=== PATIENT | male | born 1980 | race Caucasian/White ===

== ENCOUNTER 2019-03-03 15:26 | Emergency (ER) | payer MEDICARE, MEDICAID ==
[~2019-03-03] VITALS: Ht 167.6 cm; Wt 90.3 kg
[2019-03-03 15:59] VITALS: BP 130/83
--- NOTE | 2019-03-03 15:59 | ED GU-Male ---
General Chief Complaint: Male Reproductive Stated Complaint: MALE REPRODUCTIVE SWELLING Source: patient Exam Limitations: no limitations History of Present Illness Date Seen by Provider: Mar 03, 2019 Time Seen by Provider: 15:30 Initial Comments Patient reports penile swelling after vigorous manual massage. Patient states he is unable to sustain an erection despite vigorous masturbation. Reports been concerned upon visual inspection that shaft is swollen. Penis is noninteractive. No testicular pain or swelling. No other symptoms or complaints Timing/Duration: just prior to arrival Severity/Quality: mild Location: other (shaft) Radiation: none Activities at Onset: none Prior Genitourinary Problems: none Sexual [place] History: not active Modifying Factors: Improves With Analgesics Allergies and Home Medications Allergies Coded Allergies: divalproex sodium (Verified Allergy, Unknown, throat swelling, 03/03/19) haloperidol (Verified Allergy, Unknown, throat swelling, 03/03/19) risperidone (Verified Allergy, Unknown, throat swelling, 03/03/19) Patient Home Medication List Home Medication List Reviewed: Yes Review of Systems Review of Systems Constitutional: see HPI EENTM: see HPI Respiratory: see HPI Cardiovascular: see HPI Gastrointestinal: see HPI Genitourinary: see HPI Musculoskeletal: see HPI Past Memnrrf-Xwkpnz-Lqxmuf Hx Patient Social History Alcohol Use: Denies Use Recreational Drug Use: No Drug of Choice: former prescription drug user Smoking Status: Current Everyday Smoker Type Used: Cigarettes 2nd Hand Smoke Exposure: Yes Recent Foreign Travel: No Contact w/Someone Who Travel: No Recent Hopitalizations: No Physical Abuse: No Sexual Abuse: No Mistreated: No Fear: No Seasonal Allergies Seasonal Allergies: No Past Medical History Surgeries: Yes (brain surgery to remove tumor; L testicle removal; ) Respiratory: No Cardiac: No Neurological: Yes (brain cancer) Seizure Disorder, Stroke Genitourinary: Yes (Left testicle removal; bilateral testicular torsion) Musculoskeletal: No Endocrine: No HEENT: No Cancer: Yes Brain Psychosocial: Yes Anxiety Integumentary: No Physical Exam Vital Signs Capillary Refill : Height, Weight, BMI Height: '" Weight: lbs. oz. kg; BMI Method: General Appearance: WD/WN Genital/Rectal: other (minimal swelling of shaft of penis, no erythema, no blood at the meatus or swelling of glands, one testicle and scrotum) Progress/Results/Core Measures Suspected Sepsis SIRS Temperature: Pulse: Respiratory Rate: Blood Pressure / Mean: Results/Orders Vital Signs/I&O Capillary Refill : Less Than 3 Seconds Departure Communication (Admissions) Ibuprofen and rest recommended. Impression Primary Impression: Swelling of penis Disposition: 01 HOME, SELF-CARE Condition: Improved Departure-Patient Inst. Patient Instructions: Katja (ABY) Add. Discharge Instructions: Take ibuprofen as needed for penile pain and swelling. All discharge instructions reviewed with patient and/or family. Voiced understanding. EDWARDO MANDEL DO Mar 03, 2019 15:59
== END 2019-03-03 15:59 | disposition home or self-care (01) ==
LOC: EDUNIT# 15:26 → ER FS 15:30
DX: N48.89 Other specified disorders of penis (principal); F41.9 Anxiety disorder, unspecified; G40.909 Epilepsy, unspecified, not intractable, without status epilepticus; Z86.73 Personal history of transient ischemic attack (TIA), and cerebral infarction without residual deficits; Z90.79 Acquired absence of other genital organ(s); Z85.841 Personal history of malignant neoplasm of brain; Z88.8 Allergy status to other drugs, medicaments and biological substances
CPT/HCPCS: 99283

== ENCOUNTER 2019-09-04 09:41 | Outpatient (RCR) | payer MEDICARE, MEDICAID | END 2019-11-24 | disposition home or self-care (01) | LOC: ONC 09:41 | PROVIDERS: ATTEND Radiology Radiation Oncology | DX: Z51.0 Encounter for antineoplastic radiation therapy (principal) | CPT/HCPCS: 77300; 77301; 77334; 77338; 77386; 99204 ==

== ENCOUNTER 2020-02-24 14:34 | Outpatient (RCR) | payer MEDICARE, MEDICAID | END 2020-05-24 | disposition home or self-care (01) | LOC: ONC 14:34 | PROVIDERS: ATTEND Radiology Radiation Oncology | DX: Z51.0 Encounter for antineoplastic radiation therapy (principal) | CPT/HCPCS: 99213 ==

== ENCOUNTER 2020-09-20 09:45 | Outpatient (RCR) | payer MEDICARE, MEDICAID | END 2020-12-06 | disposition home or self-care (01) | LOC: ONC 09:45 | PROVIDERS: ATTEND Radiology Radiation Oncology | DX: Z51.0 Encounter for antineoplastic radiation therapy (principal); C71.8 Malignant neoplasm of overlapping sites of brain | CPT/HCPCS: 77290; 77300; 77301; 77334; 77338; 77386; 99214 ==

== ENCOUNTER 2021-06-10 15:52 | Emergency (ER) | payer MEDICARE, MEDICAID ==
[~2021-06-10] VITALS: Ht 167.7 cm; Wt 68.0 kg
[2021-06-10 16:07] VITALS: BP 131/92
--- NOTE | 2021-06-10 16:22 | ED Headache ---
General Chief Complaint: Head/Cervical Problems Stated Complaint: HEADACHES/PANIC ATTACKS Source: patient Exam Limitations: no limitations History of Present Illness Date Seen by Provider: Jun 10, 2021 Time Seen by Provider: 16:20 Initial Comments 41-year-old male with past medical history significant for metastatic brain cancer. Patient does have a diagnosis for over 5 years, followed at neurology has recently been going through radiation therapy for the last 30 days. Has a follow-up ointment in 2 weeks at and will be seeing a new neurologist. His PCP is Dr. GRISSOM who has been managing his chronic condition as well. Patient has concerns today over medications that he is taking recently that he hadn't taken for several months (buprenorphine). Patient says that it tends to help with his nerves, but got nervous after he t ook it was a very minor done something wrong. Patient does have slight headache, but no worse than usual. He also took 800 of ibuprofen this morning. Mostly just worried that he might of done something wrong. Allergies and Home Medications Allergies Coded Allergies: divalproex sodium (Verified Allergy, Unknown, throat swelling, 03/03/19) haloperidol (Verified Allergy, Unknown, throat swelling, 03/03/19) risperidone (Verified Allergy, Unknown, throat swelling, 03/03/19) Patient Home Medication List Home Medication List Reviewed: Yes Review of Systems Review of Systems Constitutional: No fever, No malaise, No weakness Eyes: No Symptoms Reported Ears, Nose, Mouth, Throat: no symptoms reported Respiratory: no symptoms reported Cardiovascular: no symptoms reported Musculoskeletal: No back pain, No joint pain Psychiatric/Neurological: See HPI, Anxiety, Headache Past Htevtqh-Cpvdrp-Xqlayt Hx Patient Social History Tobacco Use?: Yes Tobacco type used: Cigarettes Smoking Status: Current Everyday Smoker Substance use?: No Alcohol Use?: No Pt feels they are or have been: No Seasonal Allergies Seasonal Allergies: No Past Medical History Surgeries: Yes (brain surgery to remove tumor; L testicle removal; ) Respiratory: No Cardiac: No Neurological: Yes (brain cancer) Seizure Disorder, Stroke Genitourinary: Yes (Left testicle removal; bilateral testicular torsion) Musculoskeletal: No Endocrine: No HEENT: No Cancer: Yes Brain Psychosocial: Yes Anxiety Integumentary: No Physical Exam Vital Signs Vital Signs - First Documented 06/10/21 16:07 Temp 37.5 Pulse 88 Resp 18 B/P (MAP) 131/92 (105) Pulse Ox 98 O2 Delivery Room Air Capillary Refill : Height, Weight, BMI Height: 5'6.00" Weight: 199lbs. oz. [id number]; BMI Method:Stated General Appearance: WD/WN, no apparent distress HEENT: PERRL/EOMI, normal ENT inspection Neck: non-tender, supple Psychiatric: alert, oriented x 3; No depressed affect, No lethargic [place] Nerves: normal hearing, normal speech, PERRL Coordination/Gait: normal finger to nose, normal gait Motor/Sensory: no motor deficit, no sensory deficit Skin: normal color, warm/dry Progress/Results/Core Measures Results/Orders Vital Signs/I&O 06/10/21 16:07 Temp 37.5 Pulse 88 Resp 18 B/P (MAP) 131/92 (105) Pulse Ox 98 O2 Delivery Room Air Progress Progress Note : Progress Note Patient simply needed reassurance, worried that he had done something wrong by taking his Rx buprenorphine (which he had not taken since January 2021). No ill side-effects, just got worried. Departure Impression Primary Impression: Headache Qualified Codes: R51.9 - Headache, unspecified Additional Impression: Brain malignancy Qualified Codes: C71.9 - Malignant neoplasm of brain, unspecified Disposition: 01 HOME, SELF-CARE Condition: Stable Departure-Patient Inst. Decision time for Depature: 16:21 Referrals: GERARDO GRISSOM DO (PCP/Family) Primary Care Physician Patient Instructions: Headache, Adult (DC) Add. Discharge Instructions: Call Dr Grissom's office on Saturday to clarify your prescription medications that he has prescribed for you. Keep your upcoming appointment this month @ [facility]. Return to the ER for any worsening or uncontrolled symptoms All discharge instructions reviewed with patient and/or family. Voiced understanding. VIKTORIYA RAMOS DO Jun 10, 2021 16:22
--- OUTSIDE RECORDS SUMMARY | 2021-06-12 09:49 | XMS REPORT | Encounter Summary ---
Author Author [facility] Organization [facility] Address Unknown Phone Unavailable Care Team Providers Care Director Of [employer] Name Role Phone Rickie Zhou MD Unavailable Sinan Lott MD Unavailable Jose Zamudio MD Unavailable Unavailable Ron Mendoza DO PCP Marquise Colby RN 2 Unavailable Carli Kerns RN Unavailable Unavailable Edgar Rick MD Unavailable Encounter Details Care Team Description Date Type Department Wolf Garcia MD [address] [facility] [place] [address] 06/12/2021 Emergency Emergency Departmen t: [facility] [address] [facility] [address] [place] [address] Social History Date Tobacco Use Types Packs/Day Years Used Current Every Day Smoker Cigarettes 0.5 19 Smokeless Tobacco: Never Used Comments: 8-10 cigarettes per day; 2.5 p pd for 15 years Drinks/Week oz/Week Comments Alcohol Use 0 Standard drinks or equivalent 0.0 No Sex Assigned at Date Recorded Male 02/16/2020 11:06 AM CDT Date Recorded COVID-19 Exposure Response 06/12/2021 9:15 AM CDT In the last month, have you been in contact with No / Unsure someone who was confirmed or suspected to have Coronavirus / COVID-19? documented as of this encounter Last Filed Vital Signs Reading Time Taken Comments Vital Sign 141/97 06/12/2021 9:17 AM CDT Blood Pressure 64 06/12/2021 9:17 AM CDT Pulse 36.9 C (98.4 F) 06/12/2021 9:17 AM CDT Temperature - - Respiratory Rate 98% 06/12/2021 9:17 AM CDT Oxygen Saturation - - Inhaled Oxygen Concentration 63.5 kg (140 lb) 06/12/2021 9:17 AM CDT Weight 165.1 cm (5' 5") 06/12/2021 9:17 AM CDT Height 23.3 06/12/2021 9:17 AM CDT Body Mass Index documented in this encounter Functional Status Date of Assessment Functional Status Response 02/01/2021 Does the patient have a hearing impairment: No 02/01/2021 Does the patient have a visual impairment: No 02/01/2021 Does the patient have impaired ambulation: Yes 02/01/2021 Does the patient have an activity of daily living No (ADL) impairment: 02/01/2021 Does the patient have an instrumental activity of No daily living (IADL) impairment: Date of Assessment Cognitive Status Response 02/01/2021 Does the patient have a cognitive impairment: No documented as of this encounter ED Notes * Mark Reeder RN - 06/12/2021 9:43 AM CDT Pt reports increase in symptoms associated with hx of brain cancer x 5 years. Pt family reports that slight symptom increase started around the time pt stopped taking steroids and worsened in the last 3 days. Pt reports pain in head and robyn tigo, nausea, syncope and confusion with standing/ambulation. Patient and family report increased lethargy and confusion at rest. documented in this encounter Plan of Treatment Order Schedule Name Type Priority Associated Diag noses ONE TIME for 1 Occurrences starting 07/2021 until 06/12/2021 CBC AND DIFF Lab STAT ONE TIME for 1 Occurrences starting 07/2021 until 06/12/2021 COMPREHENSIVE METABOLIC Lab STAT PANEL ONE TIME for 1 Occurrences starting 07/2021 until 06/12/2021 MAGNESIUM Lab STAT ONE TIME for 1 Occurrences starting 07/2021 until 06/12/2021 CT HEAD WO CONTRAST Imaging STAT ONE TIME for 1 Occurrences starting 07/2021 until 06/12/2021 PROTIME INR (PT) Lab STAT ONE TIME for 1 Occurrences starting 07/2021 until 06/12/2021 PTT (APTT) Lab STAT documented as of this encounter Visit Diagnoses Not on filedocumented in this encounter Administered Medications Action Date Dose Rate Site Medication Order MAR Action HYDROmorphone injection (DILAUDID) 1 mg 1 mg, Intravenous, ONCE, 1 dose, 06/12/21 at 1030 documented in this encounter Orders First Ordered Date Medications Ordered That Might Not Have Count Last Ordered Date Been Administered HYDROmorphone injection (DILAUDID) 1 mg 1 06/12/2021 documented in this encounter Additional Health Concerns Assessment Noted Time A fall risk assessment has been completed for the pat ient 05/10/2021 1:53 PM CDT A Body Mass Index follow-up plan has been documented for the patient 11/23/2020 1:56 PM DEADENER PHQ-2 Depression Total Score: 0 11/23/2020 1:17 PM DEADENER documented as of this encounter
--- OUTSIDE RECORDS SUMMARY | 2021-06-12 09:49 | XMS REPORT | Encounter Summary ---
Author Author [facility] Organization [facility] Address Unknown Phone Unavailable Care Team Providers Care Marine Driller Name Role Phone Rickie Zhou MD Unavailable Sinan Lott MD Unavailable Jose Zamudio MD Unavailable Unavailable Ron Mendoza DO PCP Marquise Colby RN 2 Unavailable Carli Kerns RN Unavailable Unavailable Edgar Rick MD Unavailable Encounter Details Care Team Description Date Type Department 05/10/2021 Travel Social History Date Tobacco Use Types Packs/Day Years Used Current Every Day Smoker Cigarettes 0.5 19 Smokeless Tobacco: Never Used Comments: 8-10 cigarettes per day; 2.5 p pd for 15 years Drinks/Week oz/Week Comments Alcohol Use 0 Standard drinks or equivalent 0.0 No Sex Assigned at Date Recorded Male 02/16/2020 11:06 AM CDT Date Recorded COVID-19 Exposure Response 05/10/2021 11:48 AM CDT In the last month, have you been in contact with No / Unsure someone who was confirmed or suspected to have Coronavirus / COVID-19? documented as of this encounter Functional Status Date of Assessment [...] impairment: No documented as of this encounter Plan of Treatment Not on filedocumented as of this encounter Visit Diagnoses Not on filedocumented in this encounter Additional Health Concerns Assessment Noted Time A fall risk assessment has been completed for the pat ient 05/10/2021 1:53 PM CDT A Body Mass Index follow-up plan has been documented for the patient 11/23/2020 1:56 PM PSYCH COORDINATOR PHQ-2 Depression Total Score: 0 11/23/2020 1:17 PM PSYCH COORDINATOR documented as of this encounter
--- OUTSIDE RECORDS SUMMARY | 2021-06-12 09:49 | XMS REPORT | Clinical Summary ---
Author Author [facility] Organization [facility] Address Unknown Phone Unavailable Care Team Providers [employer] Teacher Name Role Phone Rickie Zhou MD Unavailable Sinan Lott MD Unavailable Jose Zamudio MD Unavailable Unavailable Ron Mendoza DO PCP Marquise Colby RN 2 Unavailable Carli Kerns RN Unavailable Unavailable Edgar Rick MD Unavailable Source Comments Some departments are not documenting in the electronic medical record. If you d o not see the information that you expected, contact Release of Information in [facility] Information Management department at [phone] for further assistan ce in locating additional records.[facility] Allergies Comments Active Allergy Reactions Severity Noted Date tremors or tongue swelling - patient is unsure of exact reaction Divalproex SEE COMMENTS Medium 09/26/2007 tremors or tongue swelling - patient is unsure of exact reaction Haloperidol Lactate SEE COMMENTS Medium 09/26/2007 tremors or tongue swelling - patient is unsure of exact reaction Risperidone SEE COMMENTS Medium 09/26/2007 Medications End Date Status Medication Sig Dispensed Refills Start Date Active buprenorphine (SUBUTEX) 8 Place 24 mg 0 05/04 mg tablet under tongue 0 three times daily. Added per 05/20/20 records from [facility] Active WHEEL CHAIR medical Use as 1 each 0 device needed. 0 Active Miscellaneous Medical [C71.9] 1 each 0 Supply mis 99 months 0 [id number] Active ALPRAZolam (XANAX) 1 mg Take 1 mg by 0 tablet mouth daily. 1 Active brivaracetam (BRIVIACT) Take one 30 tablet 5 50 mg tablet tablet by 1 mouth every morning. Active brivaracetam (BRIVIACT) Take one 30 tablet 5 100 mg tab tablet by 1 mouth at bedtime daily. 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 Grey Donahue Jr. is 38 y.o. male with a history of Peyronie s disease which started 2.5 years ago. First symptoms included: curvature with a sudden onset. Patient does not recall any trauma to the penis. Patient s prior treatment = none. Patient is c urrently on no medications for this condition. He was diagnosed with an gely godendroma approximately 2.5 years ago for which he underwent a craniotomy . Subsequent to this, he was placed on steroids and noticed a temporary imp rovement in the curvature, although this did not last once the steroids wer e completed. Currently has poor erectile function. L ast Assessment & Plan: Formatting of this note might be differ ent from the original. Mr. Donahue is a 38-year-old male with history all are good in neuroma status post craniotomy who presents for evaluation of penile curvature. He has significant leftward penile curvatu re with poor erections. Given his poor erectile dysfunction, we will plan to trial him on a PDE 5 inhibitor before pursuing therapy such as Xiaflex . We reviewed the etiology of parities disease and discussed the diff erence between active and chronic phase disease. We also discussed the t reatments for parities disease including oral medication such as pento xifylline and levocarnitine in the active phase as well as Xiaflex and charla gical options in the chronic phase. At this time, he is agreeable to pursui ng PDE 5 inhibitor therapy and we will plan to see him in the near future . We also discussed the concern that he h as developed erectile dysfunction at such a young age even in the setting of Peyronie's. He has a significant family history of cardiovas cular disease and is a smoker. We counseled him to quit smoking and encou raged him to follow-up with his primary care physician for cardiovascul ar evaluation. 1. Viagra prn 2. Return to clinic in 3 months 3. Smoking cessation counseling Opioid dependence on agonist therapy 06/12/2012 Post traumatic stress disorder (PTSD) 06/12/2012 Resolved Problems Problem Noted Date Resolved Date Encounter for long-term (current) use of medications 10/1403/24/2020 Brain tumor, glioma 02/29/2016 06/21/2016 Brain tumor 01/30/2016 06/21/2016 Encounters Care Team Description Date Type Specialty Wolf Garcia MD 06/12/2021 Emergency Emergency Medicine 06/12/2021 Travel Ghazal Oleary MD Anaplastic oligoastrocytoma (HCC) (Prima ry Dx) 05/10/2021 Office Visit Radiation Therapy Ghazal Oleary MD 05/10/2021 Hospital Radiology Encounter 05/10/2021 Travel Kenny Gutierrez MD 04/27/2021 Documentation Radiation Therapy Interface, Aria Treatment Data 04/10/2021 Orders Only Radiation Therapy Ghazal Oleary MD Anaplastic oligoastrocytoma (HCC) (Prima ry Dx) 04/07/2021 Office Visit Radiation Therapy Interface, Aria Treatment Data 04/07/2021 Orders Only Radiation Therapy 04/07/2021 Travel Interface, Aria Treatment Data 04/05/2021 Orders Only Radiation Therapy Rima Qiunones LMSW 04/04/2021 Documentation Radiation Therapy Interface, Aria Treatment Data 04/04/2021 Orders Only Radiation Therapy Ghazal Oleary MD Anaplastic oligoastrocytoma (HCC) (Prima ry Dx) 03/31/2021 Office Visit Radiation Therapy Interface, Aria Treatment Data 03/31/2021 Orders Only Radiation Therapy 03/31/2021 Travel Interface, Aria Treatment Data 03/30/2021 Orders Only Radiation Therapy Interface, Aria Treatment Data 03/29/2021 Orders Only Radiation Therapy Interface, Aria Treatment Data 03/28/2021 Orders Only Radiation Therapy Interface, Aria Treatment Data 03/27/2021 Orders Only Radiation Therapy Ghazal Oleary MD Malignant neoplasm of brain, unspecified (HCC) 03/24/2021 Hospital Lab Encounter Ghazal Oleary MD Anaplastic oligoastrocytoma (HCC) (Prima ry Dx) 03/24/2021 Office Visit Radiation Therapy Interface, Aria Treatment Data 03/24/2021 Orders Only Radiation Therapy 03/24/2021 Travel Interface, Aria Treatment Data 03/23/2021 Orders Only Radiation Therapy Ghazal Oleary MD Malignant neoplasm of brain, unspecified (HCC) 03/22/2021 Hospital Lab Encounter Ghazal Oleary MD 03/22/2021 Nurse Only Radiation Therapy 03/22/2021 Travel Leticia Harper RN 03/22/2021 Documentation Radiation Therapy Leticia Harper RN Anaplastic oligoastrocytoma (HCC) (Prima ry Dx) 03/22/2021 Orders Only Radiation Therapy Interface, Aria Treatment Data 03/20/2021 Orders Only Radiation Therapy Rima Quinones LMSW 03/15/2021 Documentation Radiation Therapy from Last 3 Months Immunizations Name Administration Dates Next Due Flu vaccine, inj 07/28/2019, 09/01/2018, 11/2016, 07/29/2015, unspecified (Historical) 08/04/2012 Td vaccine, unspecified 06/04/2007 (Historical) Surgical History Surgery Date Site/Laterality Comments CYST REMOVAL 11/04/2013 - Right upper arm 11/03/2014 CRANIOTOMY 02/29/2016 Head/Right CRANIOTOMY, RES ECTION TUMOR performed by Sinan Lott MD at [facility] OR/Periop Medical devices from this surgery are i n the Implants section. APPENDECTOMY 11/04/1994 - 11/03/1995 CHOLECYSTECTOMY 11/04/2003 - 11/03/2004 ORCHIECTOMY 11/04/2002 - Left for inflammatio n/pain 11/03/2003 CRANIECTOMY 03/23/2020 Head/Right CRANIECTOMY/ DEMI NE FLAP CRANIOTOMY EXCISION SUPRATENTORIAL BRAIN TUMOR performed by Sinan Lott MD at [facility] OR Medical devices from this surgery are i n the Implants section. 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 Peyronie's disease Unspecified epilepsy without mention ~[id number] of intractable epilepsy (HCC) Neuropathy 02/06/2017 Anxiety and depression anxiety with panic attacks History of transient ischemic attack (TIA) Obsessive compulsive disorder 02/10/2018 Post traumatic stress disorder (PTSD) 06/12/2012 Anaplastic oligoastrocytoma (HCC) Family History Medical History Relation Name Comments Defect Daughter Heart Attack Father Heart problem Father Cancer Maternal Aunt liver with cirrhosi s Cancer Maternal Aunt lung Heart Attack Maternal Grandfather Cancer Maternal ovarian Grandmother Cancer-Ovarian Maternal Grandmother Thyroid Disease Mother Unknown to Patient Paternal Grandfather Unknown to Patient Paternal Grandmother Diabetes Sister Dementia Neg Hx Migraines Neg Hx Seizures Neg Hx Stroke Neg Hx Relation Name Status Comments Daughter Alive Father Maternal Aunt Maternal Aunt Maternal Grandfather Maternal Grandmother Mother Alive Paternal Grandfather Paternal Grandmother Sister Alive Social History Date Tobacco Use Types Packs/Day Years Used Current Every Day Smoker Cigarettes 0.5 19 Smokeless Tobacco: Never Used Tobacco Cessation: Ready to Quit: No; Co unseling Given: Yes Comments: 8-10 cigarettes per day; 2.5 ppd for 15 years Drinks/Week oz/Week Comments Alcohol Use 0 Standard drinks or equivalent 0.0 No Sex Assigned at Date Recorded Male 02/16/2020 11:06 AM CDT Date Recorded COVID-19 Exposure Response 06/12/2021 9:15 AM CDT In the last month, have you been in contact with No / Unsure someone who was confirmed or suspected to have Coronavirus / COVID-19? 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 Respiratory Rate 98% 06/12/2021 9:17 AM CDT Oxygen Saturation - - Inhaled Oxygen Concentration 63.5 kg (140 lb) 06/12/2021 9:17 AM CDT Weight 165.1 cm (5' 5") 06/12/2021 9:17 AM CDT Height 23.3 06/12/2021 9:17 AM CDT Body Mass Index Plan of Treatment Health Maintenance Due Date Last Done Comments MEDICARE ANNUAL WELLNESS 1982 VISIT DTAP/TDAP VACCINES (1 - 02/10/2000 06/04/2007 Tdap) PHYSICAL (COMPREHENSIVE) 02/10/2000 EXAM INFLUENZA VACCINE 08/04/2021 07/23/2020, 07/28/2019, 09/01/2018, Additional history exists HEPATITIS C SCREENING Completed 11/25/2014 HIV SCREENING Completed 11/25/2014 Implants Device Identifier Shelf Expiration Date Model / Serial / L ot Implanted Type Area Manufactur er 08/03/2018 [id number] / [id number] / [id number] Imp Dura Lyoplant 5 X 5 Right: Brain AESCULAP Implanted: Qty: 1 on 02/29/2016 by NEURO Sinan Lott MD at [facility] [id number] / [id number] / [id number] Sealant Hstat Floseal 5ml Right: Brain SIMMONS:BIO Implanted: Qty: 1 on 02/29/2016 by SCI Sinan Lott MD at [facility] 11/03/2024 [id number] / [id number] / [id number] Substitute Tissue 3x3in Lyoplant Right: Brain AESC ULAP Dura Sodium Hydroxide Onlay - INC [id number] Implanted: Qty: 1 on 03/23/2020 by Sinan Lott MD at [facility] [id number] / N/A / N/A Plate Bone Level One Long Right: Skull MARISELA Craniofacial 2 Hole Ultra Low - LP Sn/A Implanted: Qty: 1 on 03/23/2020 by Sinan Lott MD at [facility] [id number] / N/A / N/A Screw Bone Level One Titanium Right: Skull DEVEN TIN Craniomaxillofacial Drill Free - LP Sn/A Implanted: Qty: 13 on 03/23/2020 by Sinan Lott MD at [facility] [id number] / N/A / N/A Plate Bone Level One Medium Curve Right: Skull TONEY -NYA Craniofacial Bur Hole Dup1 - Sn/A LP Implanted: Qty: 3 on 03/23/2020 by Sinan Lott MD at [facility] Device Identifier Shelf Expiration Date Model / Serial / L ot Explanted Type Area Manufactur er [id number] / [id number] / Plate Bn Strg Lng H1.5mm Md Right: Brain TONEY TORRES TIN Implanted: Qty: 2 on 02/29/2016 by Sinan Fontanez MD at [facility] Explanted: Qty: 2 on 03/23/2020 at [facility] [id number] / [id number] / [id number] Cover Miko Hole L17mm Od3mm Right: Brain TONEY JEFFRIES N Implanted: Qty: 2 on 02/29/2016 by Sinan Fontanez MD at [facility] Explanted: Qty: 2 on 03/23/2020 at [facility] [id number] / [id number] / [id number] Screw Neuro 1.5x4mm Drill Free Right: Brain TONEY SUN RTIN Implanted: Qty: 15 on 02/29/2016 by Sinan Fontanez MD at [facility] Explanted: Qty: 15 on 03/23/2020 at [facility] [id number] / NA / NA Screw Neuro 1.5x3.5mm Dril Ricky Right: Brain TONEY SUN RTIN Implanted: Qty: 3 on 02/29/2016 by Sinan Fontanez MD at [facility] Explanted: Qty: 3 on 03/23/2020 at [facility] [id number] / NA / NA Neuro Screw 1.8 X 5mm Right: Brain TONEY FAY Implanted: Qty: 3 on 02/29/2016 by Sinan Fontanez MD at [facility] Explanted: Qty: 3 on 03/23/2020 at [facility] Procedures * The patient is currently admitted. The information in this section might not be complete until the patient is discharged. Comments Procedure Name Priority Date/Time Associated Diag nosis MRI HEAD WO/W CONTRAST Routine 05/10/2021 Anaplas tic 1:09 PM CDT oligoastrocytoma (HCC) RAD ONC TREATMENT Routine 04/17/2021 INFORMATION 9:57 AM CDT RAD ONC TREATMENT Routine 04/10/2021 INFORMATION 9:45 AM CDT RAD ONC TREATMENT Routine 04/07/2021 INFORMATION 8:52 AM CDT RAD ONC TREATMENT Routine 04/05/2021 INFORMATION 9:39 AM CDT RAD ONC TREATMENT Routine 04/04/2021 INFORMATION 9:59 AM CDT RAD ONC TREATMENT Routine 03/31/2021 INFORMATION 9:44 AM CDT RAD ONC TREATMENT Routine 03/30/2021 INFORMATION 9:48 AM CDT RAD ONC TREATMENT Routine 03/29/2021 INFORMATION 9:56 AM CDT RAD ONC TREATMENT Routine 03/28/2021 INFORMATION 9:46 AM CDT RAD ONC TREATMENT Routine 03/27/2021 INFORMATION 10:07 AM CDT HC COMPREHENSIVE 03/24/2021 METABOLIC PANEL 9:44 AM CDT RAD ONC TREATMENT Routine 03/24/2021 INFORMATION 9:43 AM CDT RAD ONC TREATMENT Routine 03/23/2021 INFORMATION 9:49 AM CDT HC CBC W/ AUTOMATED DIFF Routine 03/22/2021 Anapl astic 10:20 AM CDT oligoastrocytoma (HCC) RAD ONC TREATMENT Routine 03/22/2021 INFORMATION 9:51 AM CDT RAD ONC TREATMENT Routine 03/21/2021 INFORMATION 9:46 AM CDT RAD ONC TREATMENT Routine 03/20/2021 INFORMATION 10:04 AM CDT RAD ONC TREATMENT Routine 03/13/2021 INFORMATION 9:58 AM CDT from Last 3 Months Results * MRI HEAD WO/W CONTRAST (05/10/2021 1:09 PM CDT) Specimen Impressions Performed At Decreased size of the necrotic/cystic r ight paracentral lobule mass and markedly [facility] improved associated right cerebral vaso genic edema. Approved by GEORGE HERNANDEZ D.O. on 2:09 PM By my electronic signature, I attest th at I have personally reviewed the images for this examination and formulated the interpretations and opinions expressed in this report Finalized by Teddy Lentz M.D. on 021 2:24 PM. Dictated by GEORGE HERNANDEZ D.O. on 05/10/2021 2:02 PM. Narrative Performed At EXAM: MRI BRAIN [facility] RESULTS HISTORY: Anaplastic oligoastrocytoma. TECHNIQUE: Multiplanar and multisequenc e MR imaging of the head was performed. This was done both before and after the administration of MultiHancecontrast. COMPARISON: MRI brain 01/18/2021. FINDINGS: Prior right paracentral lobule mass res ection. Interval decreased size of the necrotic/cystic nodular enhancing mass centered at the anterior resection margin within the right paracentral lobule vivi suring up to 2.6 cm (series 16 image 144), previously 3.3 cm. Marked improve ment in associated surrounding right cerebral vasogenic edema. Ventricles re main nondistended. No descending herniation. The vascular flow-voids are unremarkable. Diffusion weighted imaging is not indicative of acute or recent in farct. Procedure Note Interface, Radiant Results - 05/10/2021 2:27 PM CDT EXAM: MRI BRAIN HISTORY: Anaplastic oligoastrocytoma. TECHNIQUE: Multiplanar and multisequence MR imaging of the head was performed. This was done both before and after the administration of MultiHancecontrast. COMPARISON: MRI brain 01/18/2021. FINDINGS: Prior right paracentral lobule mass resection. Interval decreased size of the necrotic/cystic nodular enhancing mass centered at the anterior resection margin within the right paracentral lobule measuring up to 2.6 cm (series 16 image 144), previously 3.3 cm. Marked improvement in associated surrounding right cerebral vasogenic edema. Ventricles remain nondistended. No descending herniation. The vascular flow-voids are unremarkable. Diffusion weighted imaging is not indicative of acute or recent infarct. IMPRESSION Decreased size of the necrotic/cystic right paracentral lobule mass and markedly improved associated right cerebral vasogenic edema. Approved by GEORGE HERNANDEZ D.O. on 05/10/2021 2:09 PM By my electronic signature, I attest that I have personally reviewed the images for this examination and formulated the interpretations and opinions expressed in this report Finalized by Teddy Lentz M.D. on 05/10/2021 2:24 PM. Dictated by GEORGE HERNANDEZ D.O. on 05/10/2021 2:02 PM. Performing Organization Address City/State/ZIP Code P demetrius Number [facility] RES[facility] * RAD ONC TREATMENT INFORMATION (04/17/2021 9:57 AM CDT) Course ID C1 [facility] ONC TREATMENT First Treatment 02-21-2021 11:36AM [facility]C Date TREATMENT Last Treatment 04-17-2021 09:57AM [facility] Date TREATMENT Treatment 55 [facility] ONC Elapsed Days TREATMENT Reference Point Brain [facility] ON[facility] ID TREATMENT Dosage Given To 59.1933636 [facility] Date TREATMENT Session Dosage 1.01517902 [facility] Given TREATMENT Plan ID Brain [facility] ONC TREATMENT Plan Name Plan_0 [facility]C TREATMENT Fractions 30 [facility] Treated to Date TREATMENT Total Fractions 30 [facility] ON[facility] on Plan TREATMENT Prescribed Dose 2 [facility] ONC per Fraction TREATMENT Prescription 6,000 [facility] ONC Dose TREATMENT Specimen Performing Organization Address City/State/ZIP Code P demetrius Number [facility] ONC TREATMENT * RAD ONC TREATMENT INFORMATION (04/10/2021 9:45 AM CDT) Course ID C1 [facility] RAD ONC TREATMENT First Treatment 02-21-2021 11:36AM [facility] ONC Date TREATMENT Last Treatment 04-10-2021 09:45AM [facility] ONC Date TREATMENT Treatment 48 [facility] RAD ONC Elapsed Days TREATMENT Reference Point Brain [facility] ONC ID TREATMENT Dosage Given To 57.24547632 [facility] Date TREATMENT Session Dosage 1.49974942 [facility] RAD ONC Given TREATMENT Plan ID Brain [facility] RAD ONC TREATMENT Plan Name Plan_0 [facility] RAD ONC TREATMENT Fractions 29 [facility] ONC Treated to Date TREATMENT Total Fractions 30 [facility] RAD ONC on Plan TREATMENT Prescribed Dose 2 [facility] RAD ONC per Fraction TREATMENT Prescription 6,000 [facility] ONC Dose TREATMENT Specimen Performing Organization Address City/State/ZIP Code P demetrius Number [facility] ONC TREATMENT * RAD ONC TREATMENT INFORMATION (04/07/2021 8:52 AM CDT) Course ID C1 [facility] RAD ONC TREATMENT First Treatment 02-21-2021 11:36AM [facility] ONC Date TREATMENT Last Treatment 04-07-2021 08:52AM [facility] ONC Date TREATMENT Treatment 45 [facility] RAD ONC Elapsed Days TREATMENT Reference Point Brain [facility] ONC ID TREATMENT Dosage Given To 55.45113065 [facility] ONC Date TREATMENT Session Dosage 1.03833685 [facility] ONC Given TREATMENT Plan ID Brain [facility] RAD ONC TREATMENT Plan Name Plan_0 [facility] RAD ONC TREATMENT Fractions 28 [facility] ONC Treated to Date TREATMENT Total Fractions 30 [facility] ONC on Plan TREATMENT Prescribed Dose 2 [facility] ONC per Fraction TREATMENT Prescription 6,000 [facility] RAD ONC Dose TREATMENT Specimen Performing Organization Address [facility]/RUST Code P demetrius Number [facility] RAD ONC TREATMENT * RAD ONC TREATMENT INFORMATION (04/05/2021 9:39 AM CDT) Course ID C1 [facility] RAD ONC TREATMENT First Treatment 02-21-2021 11:36AM [facility] ONC Date TREATMENT Last Treatment 04-05-2021 09:39AM [facility] ONC Date TREATMENT Treatment 43 [facility] RAD ONC Elapsed Days TREATMENT Reference Point Brain [facility] RAD ONC ID TREATMENT Dosage Given To 53.20102844 [facility] ONC Date TREATMENT Session Dosage 1.76467190 [facility] RAD ONC Given TREATMENT Plan ID Brain [facility] RAD ONC TREATMENT Plan Name Plan_0 [facility] RAD ONC TREATMENT Fractions 27 [facility] RAD ONC Treated to Date TREATMENT Total Fractions 30 [facility] RAD ONC on Plan TREATMENT Prescribed Dose 2 [facility] RAD ONC per Fraction TREATMENT Prescription 6,000 [facility] ONC Dose TREATMENT Specimen Performing Organization Address City/State/ZIP Code P demetrius Number [facility] ONC TREATMENT * RAD ONC TREATMENT INFORMATION (04/04/2021 9:59 AM CDT) Course ID C1 [facility] RAD ONC TREATMENT First Treatment 02-21-2021 11:36AM [facility] ONC Date TREATMENT Last Treatment 04-04-2021 09:59AM [facility] ONC Date TREATMENT Treatment 42 [facility] RAD ONC Elapsed Days TREATMENT Reference Point Brain [facility] ONC ID TREATMENT Dosage Given To 51.32595769 [facility]C Date TREATMENT Session Dosage 1.21719927 [facility] ONC Given TREATMENT Plan ID Brain [facility] ONC TREATMENT Plan Name Plan_0 [facility] RAD ONC TREATMENT Fractions 26 [facility] ONC Treated to Date TREATMENT Total Fractions 30 [facility] RAD ONC on Plan TREATMENT Prescribed Dose 2 [facility] RAD ONC per Fraction TREATMENT Prescription 6,000 [facility] ONC Dose TREATMENT Specimen Performing Organization Address City/State/RUST Code P demetrius Number [facility] RAD ONC TREATMENT * RAD ONC TREATMENT INFORMATION (03/31/2021 9:44 AM CDT) Course ID C1 [facility] RAD ONC TREATMENT First Treatment 02-21-2021 11:36AM [facility] ONC Date TREATMENT Last Treatment 03-31-2021 09:44AM [facility] ON[facility] Date TREATMENT Treatment 38 [facility] RAD ONC Elapsed Days TREATMENT Reference Point Brain [facility] ONC ID TREATMENT Dosage Given To 49.94641010 [facility] ONC Date TREATMENT Session Dosage 1.54903591 [facility] ONC Given TREATMENT Plan ID Brain [facility] RAD ONC TREATMENT Plan Name Plan_0 [facility] RAD ONC TREATMENT Fractions 25 [facility] RAD ONC Treated to Date TREATMENT Total Fractions 30 [facility] RAD ONC on Plan TREATMENT Prescribed Dose 2 [facility] RAD ONC per Fraction TREATMENT Prescription 6,000 [facility] RAD ONC Dose TREATMENT Specimen Performing Organization Address City/[facility]/RUST Code P demetrius Number [facility] RAD ONC TREATMENT * RAD ONC TREATMENT INFORMATION (03/30/2021 9:48 AM CDT) Course ID C1 [facility] RAD ONC TREATMENT First Treatment 02-21-2021 11:36AM [facility] ONC Date TREATMENT Last Treatment 03-30-2021 09:48AM [facility] ONC Date TREATMENT Treatment 37 [facility] RAD ONC Elapsed Days TREATMENT Reference Point Brain [facility] ONC ID TREATMENT Dosage Given To 47.68629278 [facility] ON[facility] Date TREATMENT Session Dosage 1.24340203 [facility] ONC Given TREATMENT Plan ID Brain [facility] RAD ONC TREATMENT Plan Name Plan_0 [facility] RAD ONC TREATMENT Fractions 24 [facility] RAD ONC Treated to Date TREATMENT Total Fractions 30 [facility] RAD ONC on Plan TREATMENT Prescribed Dose 2 [facility] RAD ONC per Fraction TREATMENT Prescription 6,000 [facility] ONC Dose TREATMENT Specimen Performing Organization Address City/State/ZIP Code P demetrius Number [facility] RAD ONC TREATMENT * RAD ONC TREATMENT INFORMATION (03/29/2021 9:56 AM CDT) Course ID C1 [facility] RAD ONC TREATMENT First Treatment 02-21-2021 11:36AM [facility] ONC Date TREATMENT Last Treatment 03-29-2021 09:56AM [facility] ONC Date TREATMENT Treatment 36 [facility] RAD ONC Elapsed Days TREATMENT Reference Point Brain [facility] ONC ID TREATMENT Dosage Given To [phone] [facility] ON[facility] Date TREATMENT Session Dosage 1.75869518 [facility] ONC Given TREATMENT Plan ID Brain [facility] RAD ONC TREATMENT Plan Name Plan_0 [facility] RAD ONC TREATMENT Fractions 23 [facility] RAD ONC Treated to Date TREATMENT Total Fractions 30 [facility] RAD ONC on Plan TREATMENT Prescribed Dose 2 [facility] RAD ONC per Fraction TREATMENT Prescription 6,000 [facility] ONC Dose TREATMENT Specimen Performing Organization Address City/State/ZIP Code P demetrius Number [facility] ONC TREATMENT * RAD ONC TREATMENT INFORMATION (03/28/2021 9:46 AM CDT) Course ID C1 [facility] RAD ONC TREATMENT First Treatment 02-21-2021 11:36AM [facility] ONC Date TREATMENT Last Treatment 03-28-2021 09:46AM [facility] ONC Date TREATMENT Treatment 35 [facility] RAD ONC Elapsed Days TREATMENT Reference Point Brain [facility] ONC ID TREATMENT Dosage Given To 43.12136384 [facility] ONC Date TREATMENT Session Dosage 1.53351819 [facility] ONC Given TREATMENT Plan ID Brain [facility] RAD ONC TREATMENT Plan Name Plan_0 [facility] RAD ONC TREATMENT Fractions 22 [facility] ONC Treated to Date TREATMENT Total Fractions 30 [facility] RAD ONC on Plan TREATMENT Prescribed Dose 2 [facility] RAD ONC per Fraction TREATMENT Prescription 6,000 [facility] RAD ONC Dose TREATMENT Specimen Performing Organization Address City/State/ZIP Code P demetrius Number [facility] RAD ONC TREATMENT * RAD ONC TREATMENT INFORMATION (03/27/2021 10:07 AM CDT) Course ID C1 [facility] RAD ONC TREATMENT First Treatment 02-21-2021 11:36AM [facility] RAD ONC Date TREATMENT Last Treatment 03-27-2021 10:07AM [facility] RAD ONC Date TREATMENT Treatment 34 [facility] RAD ONC Elapsed Days TREATMENT Reference Point Brain [facility] RAD ONC ID TREATMENT Dosage Given To [id number] [facility] Date TREATMENT Session Dosage [id number] [facility] RAD [facility]C Given TREATMENT Plan ID Brain [facility] RAD ONC TREATMENT Plan Name Plan_0 [facility] RAD ONC TREATMENT Fractions 21 [facility] RAD ONC Treated to Date TREATMENT Total Fractions 30 [facility] RAD ONC on Plan TREATMENT Prescribed Dose 2 [facility] RAD ONC per Fraction TREATMENT Prescription 6,000 [facility] RAD ONC Dose TREATMENT Specimen Performing Organization Address City/State/ZIP Code P demetrius Number [facility] RAD ONC TREATMENT * COMPREHENSIVE METABOLIC PANEL (03/24/2021 9:44 AM CDT) Sodium 140 137 - 147 MMOL/L [facility] Potassium 3.9 3.5 - 5.1 MMOL/L [facility] Chloride 105 98 - 110 MMOL/L [facility] Glucose 86 70 - 100 MG/DL [facility] Blood Urea 18 7 - 25 MG/DL [facility] Nitrogen Creatinine 0.68 0.4 - 1.24 MG/DL [facility] Calcium 9.1 8.5 - 10.6 MG/DL [facility] Total Protein 6.1 6.0 - 8.0 G/DL [facility] Total Bilirubin 1.6 (H) 0.3 - 1.2 MG/DL [facility] Albumin 4.1 3.5 - 5.0 G/DL [facility] Alk Phosphatase 47 25 - 110 U/L [facility] AST (SGOT) 18 7 - 40 U/L [facility] CO2 27 21 - 30 MMOL/L [facility] ALT (SGPT) 43 7 - 56 U/L [facility] Anion Gap 8 3 - 12 [facility] eGFR Non >60 >60 mL/min [facility] Comment: Syrian The eGFR is not validated f or use in drug dosing adjustments. Continue to use estimated creatinine clearance per dosing reference text. Please contact the Clinical Pharmacist for questions. eGFR >60 >60 mL/min [facility] Syrian Comment: The eGFR is not validated for use in drug dosing adjustments. Continue to use estimated creatinine clearance per dosing reference text. Please contact the Clinical Pharmacist for questions. Specimen Performing Organization Address City/State/ZIP Code P demetrius Number [facility] [address] [place] [address] * RAD ONC TREATMENT INFORMATION (03/24/2021 9:43 AM CDT) Course ID C1 [facility] RAD ONC TREATMENT First Treatment 02-21-2021 11:36AM [facility] RAD ONC Date TREATMENT Last Treatment 03-24-2021 09:43AM [facility] RAD ONC Date TREATMENT Treatment 31 [facility] RAD ONC Elapsed Days TREATMENT Reference Point Brain [facility] RAD ONC ID TREATMENT Dosage Given To [id number] [facility] RAD ONC Date TREATMENT Session Dosage 1.36474279 [facility] RAD ONC Given TREATMENT Plan ID Brain [facility] RAD ONC TREATMENT Plan Name Plan_0 [facility] RAD ONC TREATMENT Fractions 20 [facility] RAD ONC Treated to Date TREATMENT Total Fractions 30 [facility] RAD ONC on Plan TREATMENT Prescribed Dose 2 [facility] RAD ONC per Fraction TREATMENT Prescription 6,000 [facility] RAD ONC Dose TREATMENT Specimen Performing Organization Address City/State/ZIP Code P demetrius Number [facility] RAD ONC TREATMENT * RAD ONC TREATMENT INFORMATION (03/23/2021 9:49 AM CDT) Course ID C1 [facility] RAD ONC TREATMENT First Treatment 02-21-2021 11:36AM [facility] RAD ONC Date TREATMENT Last Treatment 03-23-2021 09:49AM [facility] RAD ONC Date TREATMENT Treatment 30 [facility] RAD ONC Elapsed Days TREATMENT Reference Point Brain [facility] RAD ONC ID TREATMENT Dosage Given To [id number] [facility] RAD ONC Date TREATMENT Session Dosage 1.08162310 [facility] RAD ONC Given TREATMENT Plan ID Brain [facility] RAD ONC TREATMENT Plan Name Plan_0 [facility] RAD ONC TREATMENT Fractions 19 [facility] RAD ONC Treated to Date TREATMENT Total Fractions 30 [facility] RAD ONC on Plan TREATMENT Prescribed Dose 2 [facility] RAD ONC per Fraction TREATMENT Prescription 6,000 [facility] RAD ONC Dose TREATMENT Specimen Performing Organization Address City/State/ZIP Code P demetrius Number [facility] RAD ONC TREATMENT * CBC AND DIFF (03/22/2021 10:20 AM CDT) White Blood 10.1 4.5 - 11.0 K/UL [facility] Cells RBC 4.31 (L) 4.4 - 5.5 M/UL [facility] Hemoglobin 15.5 13.5 - 16.5 GM/DL [facility] Hematocrit 44.0 40 - 50 % [facility] MCV 102.1 (H) 80 - 100 FL [facility] MCH 35.9 (H) 26 - 34 PG [facility] MCHC 35.1 32.0 - 36.0 G/DL [facility] RDW 14.5 11 - 15 % [facility] Platelet Count 207 150 - 400 K/UL [facility] MPV 7.9 7 - 11 FL [facility] Neutrophils 79 (H) 41 - 77 % [facility] Lymphocytes 12 (L) 24 - 44 % [facility] Monocytes 9 4 - 12 % [facility] Eosinophils 0 0 - 5 % [facility] Basophils 0 0 - 2 % [facility] Absolute 7.93 (H) 1.8 - 7.0 K/UL [facility] Neutrophil Count Absolute Lymph 1.24 1.0 - 4.8 K/UL [facility] Count Absolute 0.90 (H) 0 - 0.80 K/UL [facility] Monocyte Count Absolute 0.02 0 - 0.45 K/UL [facility] Eosinophil Count Absolute 0.02 0 - 0.20 K/UL [facility] Basophil Count Specimen Blood Performing Organization Address City/State/ZIP Code P demetrius Number [facility] [address] [place] [address] * RAD ONC TREATMENT INFORMATION (03/22/2021 9:51 AM CDT) Course ID C1 [facility] RAD ONC TREATMENT First Treatment 02-21-2021 11:36AM [facility] RAD ONC Date TREATMENT Last Treatment 03-22-2021 09:51AM [facility] RAD ONC Date TREATMENT Treatment 29 [facility] RAD ONC Elapsed Days TREATMENT Reference Point Brain [facility] RAD ONC ID TREATMENT Dosage Given To [id number] [facility] RAD ONC Date TREATMENT Session Dosage 1.56442550 [facility] RAD ONC Given TREATMENT Plan ID Brain [facility] RAD ONC TREATMENT Plan Name Plan_0 [facility] RAD ONC TREATMENT Fractions 18 [facility] RAD ONC Treated to Date TREATMENT Total Fractions 30 [facility] RAD ONC on Plan TREATMENT Prescribed Dose 2 [facility] RAD ONC per Fraction TREATMENT Prescription 6,000 [facility] RAD ONC Dose TREATMENT Specimen Performing Organization Address City/[facility]/ZIP Code P demetrius Number [facility] RAD ONC TREATMENT * RAD ONC TREATMENT INFORMATION (03/21/2021 9:46 AM CDT) Course ID C1 [facility] RAD ONC TREATMENT First Treatment 02-21-2021 11:36AM [facility] RAD ONC Date TREATMENT Last Treatment 03-21-2021 09:46AM [facility] RAD ONC Date TREATMENT Treatment 28 [facility] RAD ONC Elapsed Days TREATMENT Reference Point Brain [facility] RAD ONC ID TREATMENT Dosage Given To [id number] [facility] RAD ONC Date TREATMENT Session Dosage 1.44054926 [facility] RAD ONC Given TREATMENT Plan ID Brain [facility] RAD ONC TREATMENT Plan Name Plan_0 [facility] RAD ONC TREATMENT Fractions 17 [facility] RAD ONC Treated to Date TREATMENT Total Fractions 30 [facility] RAD ONC on Plan TREATMENT Prescribed Dose 2 [facility] RAD ONC per Fraction TREATMENT Prescription 6,000 [facility] RAD ONC Dose TREATMENT Specimen Performing Organization Address City/State/ZIP Code P demetrius Number [facility] RAD ONC TREATMENT * RAD ONC TREATMENT INFORMATION (03/20/2021 10:04 AM CDT) Course ID C1 [facility] RAD ONC TREATMENT First Treatment 02-21-2021 11:36AM [facility] RAD ONC Date TREATMENT Last Treatment 03-20-2021 10:04AM [facility] RAD ONC Date TREATMENT Treatment 27 [facility] RAD ONC Elapsed Days TREATMENT Reference Point Brain [facility] RAD ONC ID TREATMENT Dosage Given To 31.97442307 [facility] RAD ONC Date TREATMENT Session Dosage 1.54780749 [facility] RAD ONC Given TREATMENT Plan ID Brain [facility] RAD ONC TREATMENT Plan Name Plan_0 [facility] RAD ONC TREATMENT Fractions 16 [facility] RAD ONC Treated to Date TREATMENT Total Fractions 30 [facility] RAD ONC on Plan TREATMENT Prescribed Dose 2 [facility] RAD ONC per Fraction TREATMENT Prescription 6,000 [facility] RAD ONC Dose TREATMENT Specimen Performing Organization Address City/State/ZIP Code P demetrius Number [facility] RAD ONC TREATMENT * RAD ONC TREATMENT INFORMATION (03/13/2021 9:58 AM CDT) Course ID C1 [facility] RAD ONC TREATMENT First Treatment 02-21-2021 11:36AM [facility] RAD ONC Date TREATMENT Last Treatment 03-13-2021 09:58AM [facility] RAD ONC Date TREATMENT Treatment 20 [facility] RAD ONC Elapsed Days TREATMENT Reference Point Brain [facility] RAD ONC ID TREATMENT Dosage Given To [id number] [facility] RAD ONC Date TREATMENT Session Dosage 1.03434539 [facility] RAD ONC Given TREATMENT Plan ID Brain [facility] RAD ONC TREATMENT Plan Name Plan_0 [facility] RAD ONC TREATMENT Fractions 15 KU RAD ONC Treated to Date TREATMENT Total Fractions 30 [facility] RAD ONC on Plan TREATMENT Prescribed Dose 2 [facility] RAD ONC per Fraction TREATMENT Prescription 6,000 [facility] RAD ONC Dose TREATMENT Specimen Performing Organization Address City/State/ZIP Code P demetrius Number [facility] RAD ONC TREATMENT from Last 3 Months Insurance Type Payer Benefit Subscriber ID Effective Phone Address Plan / Dates Group Medicare MEDICARE MEDICARE [id number] 2009-P PART A AND resent B Medicaid [facility] MEDICAID [facility] [id number] 2019-P COMMUNITY resent PLAN MD Medicaid MD MEDICAID MD 2021-P MEDICAID resent [id number] [facility] (Home) Blu Zelaya MD [phone] Advance Directives Patient Ctrs Explanation Type Date Recorded Advance 02/20/2016 10:55 AM Directive/DPOA Date Inactivated Comments Code Status Date Activated 03/25/2020 12:38 PM Full Code 03/23/2020 8:05 PM Provider has discussed Code Status No, more discussi on w/Patient or Family? needed 03/02/2016 7:27 PM Full Code 02/29/2016 5:21 PM Provider has discussed Code Status Yes w/Patient or Family?
--- OUTSIDE RECORDS SUMMARY | 2021-06-12 09:49 | XMS REPORT | Encounter Summary ---
Author Author [facility] Organization [facility] Address Unknown Phone Unavailable Care Team Providers Care Branch Service Specialist Name Role Phone Rickie Zhou MD Unavailable Sinan Lott MD Unavailable Jose Zamudio MD Unavailable Unavailable Ron Mendoza DO PCP Marquise Colby RN 2 Unavailable Carli Krens RN Unavailable Unavailable Edgar Rick MD Unavailable Reason for Referral * Radiology Services (Routine) Referred By Contact Referred To Contact Status Reason Specialty Diagnoses / Procedures Ghazal Oleary MD [address] [place] [address] 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 [place] [id number] Social History Date Tobacco Use Types Packs/Day [...] impairment: No documented as of this encounter Medications at Time of Discharge Start Date End Date Medication Sig Dispensed Refills 11/17/2020 ALPRAZolam (XANAX) 1 mg Take 1 mg by 0 tablet mouth daily. 12/27/2020 brivaracetam (BRIVIACT) Take one 30 tablet 5 100 mg tab tablet by mouth at bedtime daily. 12/27/2020 brivaracetam (BRIVIACT) Take one 30 tablet 5 50 mg tablet tablet by mouth every morning. 05/20/2020 buprenorphine (SUBUTEX) 8 Place 24 mg 0 mg tablet under tongue three times daily. Added per 05/20/20 records from [facility] pharmacy 02/20/2021 dexAMETHasone (DECADRON) TAKE 1 TABLET 60 tablet 0 4 mg tabletIndications: BY MOUTH Anaplastic EVERY 12 oligoastrocytoma (HCC) HOURS WITH FOOD 09/06/2020 Miscellaneous Medical [C71.9] 1 each 0 Supply [facility] 99 months [id number] 09/05/2020 WHEEL CHAIR medical Use as 1 each 0 device needed. documented as of this encounter Discharge Disposition Code Departure Means Destination Disposition Home Home or Self Care documented in this encounter Plan of Treatment Not on filedocumented as of this encounter Procedures Comments Procedure Name Priority Date/Time Associated Diag nosis MRI HEAD WO/W CONTRAST Routine 05/10/2021 Anaplas tic 1:09 PM CDT oligoastrocytoma (HCC) documented in this encounter Results * MRI HEAD WO/W CONTRAST (05/10/2021 [...] Code P demetrius Number KU RAD RESULTS documented in this encounter Visit Diagnoses Diagnosis Anaplastic oligoastrocytoma (HCC) documented in this encounter Administered Medications Action Date Dose Rate Site Medication Order MAR Action 05/10/2021 1:12 PM CDT 15 mL gadobenate dimeglumine (MULTIHANCE) Given injection 15 mL 15 mL, Intravenous, ONCE, 1 dose, Sat05/10/21 at 1300, NOTE: This is a HIGH ALERT Medication., documented in this encounter Orders First Ordered Date Medications Ordered That Might Not Have Count Last Ordered Date Been Administered gadobenate dimeglumine (MULTIHANCE) 1 injection 15 mL documented in this encounter Additional Health Concerns Assessment Noted Time A fall risk assessment has been completed for the pat ient 05/10/2021 1:53 PM CDT A Body Mass Index follow-up plan has been documented for the patient 11/23/2020 1:56 PM PRODUCT SAFETY PROFESSIONAL PHQ-2 Depression Total Score: 0 11/23/2020 1:17 PM PRODUCT SAFETY PROFESSIONAL documented as of this encounter
--- OUTSIDE RECORDS SUMMARY | 2021-06-12 09:49 | XMS REPORT | Encounter Summary ---
Author Author [facility] Organization [facility] Address Unknown Phone Unavailable Care Team Providers Care Distresser Name Role Phone Rickie Zhou MD Unavailable Sinan Lott MD Unavailable Jose Zamudio MD Unavailable Unavailable Ron Mendoza DO PCP Marquise Colby RN 2 Unavailable Carli Kerns RN Unavailable Unavailable Edgar Rick MD Unavailable Encounter Details Care Team Description Date Type Department 06/12/2021 Travel Social History Date Tobacco Use Types [...] documented for the patient 11/23/2020 1:56 PM HORSE RACING ANALYST PHQ-2 Depression Total Score: 0 11/23/2020 1:17 PM HORSE RACING ANALYST documented as of this encounter
--- OUTSIDE RECORDS SUMMARY | 2021-06-12 09:49 | XMS REPORT | Encounter Summary ---
Author Author [facility] Organization [facility] Address Unknown Phone Unavailable Care Team Providers Care Professor Of Theatre Name Role Phone Rickie Zhou MD Unavailable Sinan Lott MD Unavailable Jose Zamudio MD Unavailable Unavailable Ron Mendoza DO PCP Marquise Colby RN 2 Unavailable Carli Kerns RN Unavailable Unavailable Edgar Rick MD Unavailable Reason for Visit * Reason Comments Rad Therapy Follow-up Encounter Details Care Team Description Date Type Department Ghaazl Oleary MD [address] [facility] [place] [address] Anaplastic oligoastrocytoma (HCC) (Prima ry Dx) 05/10/2021 Office Visit Radiation Oncology: [facility] [place] [address] [facility] [place] [address] Social History Date Tobacco Use Types Packs/Day [...] Signs Reading Time Taken Comments Vital Sign 119/73 05/10/2021 1:52 PM CDT Blood Pressure 87 05/10/2021 1:52 PM CDT Pulse 36.8 C (98.2 F) 05/10/2021 1:52 PM CDT Temperature - - Respiratory Rate 100% 05/10/2021 1:52 PM CDT Oxygen Saturation - - Inhaled Oxygen Concentration 73.9 kg (163 lb) 05/10/2021 1:52 PM CDT Weight 165.1 cm (5' 5") 05/10/2021 1:52 PM CDT Height 27.12 05/10/2021 1:52 PM CDT Body Mass Index documented in this [...] impairment: No documented as of this encounter Progress Notes * Ghazal Oleary MD - 05/10/2021 2:00 PM CDT Radiation Oncology Follow Up Note Date: 05/10/2021 Grey Donahue (Aj) is a 41 y.o. male. There were no encounter diagnoses. Staging: Cancer Staging No matching staging information was found for the patient. Subjective: Cancer Staging No matching staging information was found for the patient. Site of treatment: Brain Date of treatment: 02/21/21-04/17/21 Dose /fraction: 60Gy/30fx Technique of radiation: IMRT 6x photon History of Present Illness 40 y.o. 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 Prior to resection he had been treated with salvage chemotherapy and initiated involved field radiotherapy but stopped due to tolerance after 2 fract ions. Following his March 2020 resection he again attempted to pursue adjuvant ra diotherapy, but again only received 2 fractions prior to stopping treatment. He has had continued disease regression on his most recent MRI on 01/18/2021 and his case was presented at multidisciplinary tumor board with the recommendation for consideration of radiotherapy with possible concurrent chemotherapy. Surgical resection was not recommended due to motor cortex involvement. He was treated radiotherapy only and completed 04/17/2021. He is here for a follow up with MRI. He has no new symptom. Left leg weakness as existing deficit. Developed facial skin rash. Review of Systems All other systems reviewed and are negative. Objective: ALPRAZolam (XANAX) 1 mg tablet Take 1 mg by mouth daily. brivaracetam (BRIVIACT) 100 mg tab Take one tablet by mouth at bedtime daily . brivaracetam (BRIVIACT) 50 mg tablet Take one tablet by mouth every morning. buprenorphine (SUBUTEX) [address] 24 mg under tongue three times ebenezer ly. Added per 05/20/20 records from [facility] pharmacy dexAMETHasone (DECADRON) 4 mg tablet TAKE 1 TABLET BY MOUTH EVERY [address] [facility] [employer] [facility] [place] [C71.9] 99 months [phone] WHEEL CHAIR medical leader Use as needed. Vitals: 05/10/21 1352 BP: 119/73 Pulse: 87 Temp: 36.8 C (98.2 F) SpO2: 100% Weight: 73.9 kg (163 lb) Height: 165.1 cm (65") PainSc: Three Body mass index is 27.12 kg/m. Pain Score: Three Pain Loc: Head Fatigue Scale: 0-None KARNOFSKY PERFORMANCE SCORE: 70% Cares for self; unable to do normal activity, or active work Physical Exam Constitutional: General: He is not in acute distress. Eyes: Extraocular Movements: Extraocular movements intact. Pupils: Pupils are equal, round, and reactive to light. Cardiovascular: Rate and Rhythm: Normal rate and regular rhythm. Pulmonary: Effort: Pulmonary effort is normal. Breath sounds: Normal breath sounds. Neurological: Mental Status: He is alert and oriented to person, place, and time. Cranial Nerves: No cranial nerve deficit. Motor: Weakness (left leg weakness 3/5) present. MRI 05/10/2021 Decreased size of the necrotic/cystic right paracentral lobule mass and markedly improved associated right cerebral vasogenic edema. Assessment and Plan: 1. MRI showed significant improvement of the necrotic/cystic right paracentral lobule mass and markedly improved associated right cerebral vasogenic edema. 2. No new symptom. Doing well. 3 return in 6 months for a follow up. 4. Will see Med Onc for adjuvant chemotherapy. documented in this encounter Plan of Treatment Not on filedocumented as of this encounter Visit Diagnoses Diagnosis Anaplastic oligoastrocytoma (HCC) - Anu edward documented in this encounter Additional Health Concerns Assessment Noted Time A fall risk assessment has been completed for the pat ient 05/10/2021 1:53 PM CDT A Body Mass Index follow-up plan has been documented for the patient 11/23/2020 1:56 PM COLLISION MECHANIC PHQ-2 Depression Total Score: 0 11/23/2020 1:17 PM COLLISION MECHANIC documented as of this encounter
--- OUTSIDE RECORDS SUMMARY | 2021-06-12 09:50 | XMS REPORT | Encounter Summary ---
Author Author [facility] Organization [facility] Address Unknown Phone Unavailable Care Team Providers Care Recruiting Scheduler Name Role Phone Rickie Zhou MD Unavailable Sinan Lott MD Unavailable Jose Zamudio MD Unavailable Unavailable Ron Mendoza DO PCP Marquise Colby RN 2 Unavailable Carli Kerns RN Unavailable Unavailable Edgar Rick MD Unavailable Encounter Details Care Team Description Date Type Department Kenny Gutierrez MD [address] [place] [address] 04/27/2021 Documentation Radiation Oncology: [facility] [address] [place] [address]. [place] [address] Social History Date Tobacco Use Types Packs/Day Years Used Current Every Day Smoker Cigarettes 0.5 19 Smokeless Tobacco: Never Used Comments: 8-10 cigarettes per day; 2.5 p pd for 15 years Drinks/Week oz/Week Comments Alcohol Use 0 Standard drinks or equivalent 0.0 No Sex Assigned at Date Recorded Male 02/16/2020 11:06 AM CDT Date Recorded COVID-19 Exposure Response 04/07/2021 8:51 AM CDT In the last month, have [...] has been completed for the pat ient 04/07/2021 9:04 AM CDT A Body Mass Index follow-up plan has been documented for the patient 11/23/2020 1:56 PM SENSITOMETRIST PHQ-2 Depression Total Score: 0 11/23/2020 1:17 PM SENSITOMETRIST documented as of this encounter
== END 2021-06-10 16:24 | disposition home or self-care (01) ==
LOC: EDUNIT# 15:52 → ER FS 15:55
DX: C71.9 Malignant neoplasm of brain, unspecified (principal); F17.210 Nicotine dependence, cigarettes, uncomplicated; Z86.73 Personal history of transient ischemic attack (TIA), and cerebral infarction without residual deficits
CPT/HCPCS: 99282

== ENCOUNTER 2021-12-03 18:31 | Emergency (ER) | payer MEDICARE, MEDICAID ==
[~2021-12-03] VITALS: Ht 165.1 cm; Wt 64.7 kg
--- NOTE | 2021-12-03 18:37 | ED Back Pain ---
General Chief Complaint: Back Problems Stated Complaint: NUMBNESS; BACK PAIN History of Present Illness Date Seen by Provider: Dec 03, 2021 Time Seen by Provider: 18:37 Initial Comments 41-year-old male presents with some back pain, feels like his spine is swelling, some numbness. He also complains of some heaviness in his limbs. Patient is on hospice with a known inoperable brain cancer. They present today because the last time this happened he received a steroid seem to help and they were asking if they could try a steroid to help with his symptoms. Patient otherwise wants a limited work-up and will just follow-up with his hospice at home nurses in the morning Allergies and Home Medications Allergies Coded Allergies: divalproex sodium (Verified Allergy, Unknown, throat swelling, 03/03/19) haloperidol (Verified Allergy, Unknown, throat swelling, 03/03/19) risperidone (Verified Allergy, Unknown, throat swelling, 03/03/19) Patient Home Medication List Home Medication List Reviewed: Yes Review of Systems Constitutional: no symptoms reported, see HPI EENTM: no symptoms reported Respiratory: no symptoms reported Cardiovascular: no symptoms reported Gastrointestinal: no symptoms reported Genitourinary: no symptoms reported Musculoskeletal: see HPI Skin: no symptoms reported Psychiatric/Neurological: See HPI Past Qdomnon-Jafbtp-Rfvgxm Hx Seasonal Allergies Seasonal Allergies: No Past Medical History Surgeries: Yes (brain surgery to remove tumor; L testicle removal; ) Respiratory: No Cardiac: No Neurological: Yes (brain cancer) Seizure Disorder, Stroke Genitourinary: Yes (Left testicle removal; bilateral testicular torsion) Musculoskeletal: No Endocrine: No HEENT: No Cancer: Yes Brain Psychosocial: Yes Anxiety Integumentary: No Physical Exam Vital Signs Capillary Refill : Height, Weight, BMI Height: 5'6.00" Weight: 199lbs. oz. 90.564284sb; 24.00 BMI Method:Stated General Appearance: No Apparent Distress, WD/WN Neck: Full Range of Motion Cardiovascular: Regular Rate, Rhythm, No Edema Respiratory: Lungs Clear, Normal Breath Sounds Gastrointestinal: Non Tender, Soft Neurologic/Psychiatric: Alert, Oriented x3 Skin: Normal Color, Warm/Dry Progress/Results/Core Measures Results/Orders My Orders Orders - ROSA BOLANOS DO Dexamethasone Injection (Decadron Inje (12/03/21 18:45) Progress Progress Note : Progress Note Patient is requesting steroid to help with some symptomatic control with his known brain cancer that would maybe help with the swelling. Since he is on hospice I have no difficult difficulty with giving him at dexamethasone 10 mg IM shot since pharmacies are closed tonight. I will also prescribe him a Medrol [place]. Patient stable and discharged charged home Departure Impression Primary Impression: Brain malignancy Qualified Codes: C71.9 - Malignant neoplasm of brain, unspecified Additional Impressions: Sensation of heaviness in extremities Hospice care patient Disposition: 01 HOME, SELF-CARE Condition: Stable Departure-Patient Inst. Referrals: GERARDO GRISSOM DO (PCP/Family) Primary Care Physician Patient Instructions: Getting the Care You Need Add. Discharge Instructions: Follow-up with your primary care provider as needed All discharge instructions reviewed with patient and/or family. Voiced understanding. Scripts Methylprednisolone (Methylprednisolone Dose Pack) 4 Mg Tab.ds.pk 4 MG PO UD for 6 Days, #21 PKG PER DOSE PACK INSTRUCTIONS Prov: ROSA BOLANOS DO 12/03/21 ROSA BOLANOS DO Dec 03, 2021 18:37
[2021-12-03] MEDS ORDERED: METH4TAB10 PO (18:49)
[2021-12-03 18:59] VITALS: BP 150/84
== END 2021-12-03 18:58 | disposition home or self-care (01) ==
LOC: EDUNIT# 18:31 → ER FS 18:33
DX: C71.9 Malignant neoplasm of brain, unspecified (principal); R20.8 Other disturbances of skin sensation; Z51.5 Encounter for palliative care; Z86.73 Personal history of transient ischemic attack (TIA), and cerebral infarction without residual deficits
CPT/HCPCS: 99284